=== PATIENT | female | born 1955 | race Caucasian/White ===

== ENCOUNTER 2019-09-06 19:18 | Emergency (ER) | payer MEDICAID ==
[~2019-09-06] VITALS: Ht 182.9 cm; Wt 106.0 kg
[~2019-09-06 19:18] MED LIST: CANE-100; NAPR-1154 PO
[2019-09-06 20:38] LABS: EOSINOPHILS # (AUTO) 0.1 X10'3 (0-0.9); HEMOGLOBIN 17.7 g/dl (12.0-16.0); MONOCYTES # (AUTO) 0.7 X10'3 (0-0.9); WHITE BLOOD COUNT 9.4 X10'3 (4.5-11.0)
[2019-09-06 20:40] LABS: BASOPHILS % (AUTO) 0.5 % (0-1); EOSINOPHILS % (AUTO) 0.7 % (0-6); HEMATOCRIT 51.3 % (35.0-45.0); LYMPHOCYTES # (AUTO) 3.1 X10'3 (1.1-4.8); LYMPHOCYTES % (AUTO) 33.3 % (21-51); MEAN CORPUSCULAR HEMOGLOBIN 30.5 PG (27.0-31.0); MEAN CORPUSCULAR HGB CONC 34.5 g/dL (33.0-36.5); MEAN CORPUSCULAR VOLUME 88.6 FL (78-98); MEAN PLATELET VOLUME 9.4 FL (7.4-10.4); MONOCYTES % (AUTO) 7.4 % (2-12); NEUTROPHILS # (AUTO) 5.5 X10'3 (1.8-7.7); NEUTROPHILS % (AUTO) 58.1 % (42-75); PLATELET COUNT 248 X10'3 (140-440); RED BLOOD COUNT 5.79 X10'6 (4.20-5.60); RED CELL DISTRIBUTION WIDTH 13.3 % (11.5-14.5)
[2019-09-06 20:44] LABS: ALANINE AMINOTRANSFERASE 37 U/L (12-78); ALBUMIN 3.9 G/DL (3.4-5.0); ALBUMIN/GLOBULIN RATIO 1.1 (1.1-1.5); ALKALINE PHOSPHATASE 102 IU/L (46-116); ANION GAP 10 (8-16); ASPARTATE AMINO TRANSFERASE 15 U/L (10-37); BILIRUBIN,TOTAL 0.3 MG/DL (0.1-1.0); BLOOD UREA NITROGEN 67 MG/DL (7-18); BUN/CREATININE RATIO 33.5 (6.6-38.0); CHLORIDE 100 MMOL/L (99-107); GLUCOSE 125 MG/DL (70-104); LIPASE 128 U/L (73-393); POTASSIUM 4.4 MMOL/L (3.5-5.1); SODIUM 135 MMOL/L (135-145); TOTAL CARBON DIOXIDE 24.9 MMOL/L (24-32); TOTAL PROTEIN 7.5 G/DL (6.4-8.2); eGFR 25 ML/MIN
[2019-09-06] MEDS ORDERED: famotidine/PF 10 mg/ml inj IV ONE (22:05)
[2019-09-06] MEDS ORDERED: pantoprazole 40 MG vial IV ONE (22:05)
[2019-09-06] MEDS ORDERED: ondansetron/PF 4mg/2ml inj IV ONE (22:05)
--- NOTE | 2019-09-06 23:24 | NUR ---
Radiology stated they would be over to get Pt in apporx [address] scan.
--- NOTE | 2019-09-06 23:45 | NUR ---
Pt CT scan completed.
[2019-09-07] LABS: CLARITY,URINE CLEAR (Clear); COLOR,URINE YELLOW (Yellow); GLUCOSE, URINE NEGATIVE (Neg); KETONES,URINE NEGATIVE (Neg); LEUKOCYTE ESTERASE ,URINE NEGATIVE (Neg); NITRITES, URINE NEGATIVE (Neg); OCCULT BLOOD,URINE NEGATIVE (Neg); PH,URINE 5.5 (4.8-8.0); PROTEIN,URINE NEGATIVE (Neg); UROBILINOGEN,URINE 0.2 E.U/dL (0.2-1.0)
[2019-09-07 00:04] LABS: UA COLLECTION TYPE CLN CATCH MIDSTREAM
[2019-09-07] MEDS ORDERED: SUCR1TAB34 PO (00:15)
[2019-09-07] MEDS ORDERED: FAMO20TA44 PO (00:15)
[2019-09-07] MEDS ORDERED: OMEP-297 PO (00:15)
[2019-09-07] MEDS ORDERED: ONDA4TAB6 PO (00:15)
[2019-09-07 00:26] VITALS: BP 105/72
== END 2019-09-07 00:28 | disposition home or self-care (01) ==
LOC: ER 19:21
DX: R10.10 Upper abdominal pain, unspecified (principal); R10.13 Epigastric pain; R19.7 Diarrhea, unspecified; R11.2 Nausea with vomiting, unspecified; G89.29 Other chronic pain; Z88.1 Allergy status to other antibiotic agents; Z79.899 Other long term (current) drug therapy
CPT/HCPCS: 36415; 74176; 80053; 81003; 83690; 85025; 96374; 96375; 99284; C9113; J2405; J3490

== ENCOUNTER 2022-08-19 13:00 | Emergency (ER) | payer MEDICARE ==
[~2022-08-19] VITALS: Ht 182.9 cm; Wt 102.0 kg
[~2022-08-19 13:00] MED LIST changes: -CANE-100; +LISI20TA28 PO; -NAPR-1154 PO; +PANT40TA54 PO
[2022-08-19 13:55] LABS: BASOPHILS # (AUTO) 0.1 X10'3 (0-0.2); BASOPHILS % (AUTO) 0.9 % (0-1); EOSINOPHILS # (AUTO) 0.1 X10'3 (0-0.9); EOSINOPHILS % (AUTO) 0.9 % (0-6); HEMATOCRIT 44.4 % (35.0-45.0); HEMOGLOBIN 14.7 g/dl (12.0-16.0); LYMPHOCYTES # (AUTO) 3.2 X10'3 (1.1-4.8); LYMPHOCYTES % (AUTO) 44.2 % (21-51); MEAN CORPUSCULAR HEMOGLOBIN 31.1 PG (27.0-31.0); MEAN CORPUSCULAR HGB CONC 33.2 g/dL (33.0-36.5); MEAN CORPUSCULAR VOLUME 93.7 FL (78-98); MEAN PLATELET VOLUME 8.5 FL (7.4-10.4); MONOCYTES # (AUTO) 0.7 X10'3 (0-0.9); NEUTROPHILS # (AUTO) 3.1 X10'3 (1.8-7.7); PLATELET COUNT 269 X10'3 (140-440); RED BLOOD COUNT 4.74 X10'6 (4.20-5.60); RED CELL DISTRIBUTION WIDTH 13.9 % (11.5-14.5); WHITE BLOOD COUNT 7.1 X10'3 (4.5-11.0)
[2022-08-19 14:13] LABS: ALANINE AMINOTRANSFERASE 32 U/L (12-78); ALBUMIN 3.7 G/DL (3.4-5.0); ALBUMIN/GLOBULIN RATIO 0.9 (1.1-1.5); ALKALINE PHOSPHATASE 110 IU/L (46-116); ANION GAP 10 (8-16); ASPARTATE AMINO TRANSFERASE 25 U/L (10-37); BILIRUBIN,TOTAL 0.2 MG/DL (0.1-1.0); BLOOD UREA NITROGEN 35 MG/DL (7-18); BUN/CREATININE RATIO 22.2 (6.6-38.0); CALCIUM 10.3 MG/DL (8.5-10.1); CHLORIDE 104 MMOL/L (99-107); CREATININE 1.58 MG/DL (0.40-0.90); GLUCOSE 114 MG/DL (70-104); POTASSIUM 4.9 MMOL/L (3.5-5.1); SODIUM 136 MMOL/L (135-145); TOTAL PROTEIN 7.6 G/DL (6.4-8.2); eGFR 33 ML/MIN
[2022-08-19 16:07] VITALS: BP 97/62
[2022-08-20 05:46] LABS: OCCULT BLOOD STOOL NEGATIVE (Neg)
== END 2022-08-19 19:02 | disposition home or self-care (01) ==
LOC: ER 13:01
DX: G89.29 Other chronic pain (principal); R10.9 Unspecified abdominal pain; R19.7 Diarrhea, unspecified; R42 Dizziness and giddiness; I10 Essential (primary) hypertension; M54.9 Dorsalgia, unspecified; Z90.49 Acquired absence of other specified parts of digestive tract; Z88.1 Allergy status to other antibiotic agents; Z79.899 Other long term (current) drug therapy
CPT/HCPCS: 36415; 71045; 80053; 82272; 83880; 84484; 85025; 93005; 99285

== ENCOUNTER 2024-05-17 11:48 | Emergency (ER) | payer MEDICARE, OTHER ==
[~2024-05-17] VITALS: Ht 182.9 cm; Wt 90.9 kg
[2024-05-17 11:50] VITALS: TEMP 98
[2024-05-17] MEDS: ketorolac trometh 15mg/ml vial 15 MG/ML ML IM ONE (12:50)
[2024-05-17] MEDS ORDERED: NAPR-56 PO (13:14)
[2024-05-17] MEDS ORDERED: TIZA4CAP PO (13:14)
[2024-05-17] MEDS ORDERED: GABA-530 PO (13:14)
[2024-05-17 13:29] VITALS: BP 150/85; PULSE 73; O2SAT 95
[2024-05-17 13:33] VITALS: RESP 18
== END 2024-05-17 13:34 | disposition home or self-care (01) ==
LOC: ER 11:49
DX: M25.552 Pain in left hip (principal); I10 Essential (primary) hypertension; G89.29 Other chronic pain; M54.9 Dorsalgia, unspecified; Z79.899 Other long term (current) drug therapy; Z79.1 Long term (current) use of non-steroidal anti-inflammatories (NSAID); Z88.1 Allergy status to other antibiotic agents; Z90.710 Acquired absence of both cervix and uterus
CPT/HCPCS: 73502; 96372; 99284; J1885